=== PATIENT | female | born 1995 | race Caucasian/White ===

== ENCOUNTER 2018-02-28 15:24 | Emergency (ER) | payer OTHER ==
[2018-02-28] MEDS ORDERED: ACETAMINOPHEN 325 MG TABLET PO STA (16:16)
--- NOTE | 2018-02-28 16:20 | ED Physician Documentation ---
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 She is currently , and thinks she is at 6 weeks gestation. She reports nausea, and is vomited twice today. She denies fever, dysuria, or vaginal bleeding. Review of Systems Constitutional: denies: Fever Nose: denies: Congestion Throat: denies: Sore throat Cardiac: denies: Chest pain / pressure Respiratory: denies: Dyspnea, Cough GI: reports: Abdominal Pain, Nausea, Vomiting. denies: Diarrhea : denies: Dysuria, Vaginal bleeding Skin: denies: Rash Musculoskeletal: denies: Back pain Neurologic: denies: Headache PD PAST MEDICAL HISTORY - Past Medical History Past Medical History: Yes Respiratory: None Endocrine/Autoimmune: None MORTGAGE ACCOUNTING CLERK: Miscarriage(s) - Present Medications Home Medications: Ambulatory Orders Medication Instructions Recorded Confirmed Pnv No.122/Iron/Folic Acid 1 each PO 02/28/18 [ Multi Tablet] - Allergies Allergies/Adverse Reactions: Allergies Allergy/AdvReac Type Severity Reaction Status Date / Time eletriptan [From Relpax] Allergy Hives Verified 02/28/18 15:46 Penicillins Allergy Hives Verified 02/28/18 15:46 Sulfa (Sulfonamide Allergy Hives Verified 02/28/18 15:46 Antibiotics) - Social History Does the pt smoke?: No PD ED PE NORMAL - Vitals Vital signs reviewed: Yes (borderline hypertension) - General General: Alert and oriented X 3, Well developed/nourished, Other (overweight) - HEENT HEENT: Atraumatic, Moist mucous membranes, Pharynx benign - Neck Neck: No adenopathy, No JVD - Cardiac Cardiac: RRR, No murmur - Respiratory Respiratory: No respiratory distress, Clear bilaterally - Abdomen Abdomen: Soft, Other (Mild suprapubic tenderness to palpation, without rebound tenderness or guarding.) - Back Back: No CVA TTP - Derm Derm: No rash - Extremities Extremities: No edema, No calf tenderness / cord - Neuro Neuro: Alert and oriented X 3, No motor deficit, Normal speech Results - Vitals Vitals: Oxygen O2 Source Room air - Labs Labs: Laboratory Tests 02/28/18 02/28/18 15:52 16:21 HCG, Quant 2624.00 Urine Color YELLOW Urine Clarity CLEAR Urine pH 6.5 Ur Specific [place] 1.020 Urine Protein NEGATIVE Urine Glucose (UA) NEGATIVE Urine Ketones NEGATIVE Urine Occult Blood NEGATIVE Urine Nitrite NEGATIVE Urine Bilirubin NEGATIVE Urine Urobilinogen 0.2 (NORMAL) Ur Leukocyte Esterase NEGATIVE Ur Microscopic Review NOT INDICATED Urine Culture Comments NOT INDICATED - Rads (name of study) Pelvic U/S Radiology: Prelim report reviewed, EMP read contemporaneously, See rad report ( Intrauterine gestational sac which is too small and early to visualize pole and cardiac activity. Differential diagnosis includes normal viable early intrauterine and blighted ovum.) PD MEDICAL DECISION MAKING - ED course Complexity details: reviewed results, re-evaluated patient, considered differential, d/w patient, d/w family ED course: The patient's presentation, with mild pelvic pain, has likely due to incomplete miscarriage, with a quantitative hCG elevated at 2624, and a pelvic ultrasound that reveals an intrauterine gestational sac without cardiac activity. This may represent an early normal , but is also consistent with a blighted ovum. The patient is otherwise asymptomatic. She is being discharged with a prescription to have a repeat quantitative hCG level in 2 days, with the results to be sent to her pathology assistant at the [facility]. I discussed with her and her the results of the ultrasound , the importance of repeat quantitative hCG level, outpatient follow-up, as well as potentially worrisome signs or symptoms that should prompt reevaluation in the emergency department. Departure - Departure Disposition: 01 Home, Self Care Clinical Impression: Pelvic pain affecting in first trimester, antepartum Condition: Stable Instructions: ED Pelvic Pain [facility] Follow-Up: [facility] [Provider Group] Comments: You can use Tylenol if needed for discomfort. Use your antinausea medication as previously prescribed. Repeat the beta hCG blood test in 2 or 3 days. Follow up with your pathology assistant. Call tomorrow to schedule an appointment for Saturday if possible. Return to the emergency department if you develop increasing pelvic pain, increased vaginal bleeding, persistent vomiting, or otherwise worsening symptoms. Discharge Date/Time: 02/28/18 19:19
[2018-02-28 16:40] LABS: BILIRUBIN,URINE NEGATIVE (NEGATIVE); GLUCOSE, URINE (UA) NEGATIVE (NEGATIVE); KETONES,URINE (UA) NEGATIVE (NEGATIVE); LEUKOCYTE ESTERASE, URINE NEGATIVE (NEGATIVE); NITRITE,URINE NEGATIVE (NEGATIVE); OCCULT BLOOD,URINE NEGATIVE (NEGATIVE); PH,URINE 6.5 PH (5.0-7.5); PROTEIN,URINE NEGATIVE (NEGATIVE); UROBILINOGEN,URINE 0.2 (NORMAL) E.U./dL (NORMAL)
[2018-02-28 16:41] LABS: CLARITY,URINE CLEAR (CLEAR)
--- NOTE | 2018-02-28 17:47 | Ultrasound Report ---
EXAM: FIRST TRIMESTER OBSTETRIC ULTRASOUND (Less than 11 weeks) EXAM DATE: 02/28/2018 05:30 PM. CLINICAL HISTORY: Pelvic cramping in 1st trimester. LMP: 01/23/2018. COMPARISONS: None. TECHNIQUE: Transabdominal and transvaginal ultrasound examination with static image documentation. CLINICAL DATES: EGA 5 weeks 1 day with CHARLIE 10/30/2018 based on LMP. ASSESSMENT: Gestational Sac: Single intrauterine. Mean gestational sac diameter: 4.6 mm = 4 weeks 2 days. Embryo: Not visualized Yolk sac: 1.2 mm. Amniotic fluid: Not accurately assessed at this gestational age. Early placenta: Not visible at this gestational age. Other: No perigestational fluid collection demonstrated. MATERNAL STRUCTURES: Uterus: Anteverted. Unremarkable. Cervix: Closed. Right Ovary/Adnexa: Unremarkable. The ovary measures 2.5 x 2.3 x 2.2 cm. Left Ovary/Adnexa: Not seen. Other: None. IMPRESSION: 1. Intrauterine gestational sac which is too small and early to visualize pole and cardiac acti vity. Differential diagnosis includes normal viable early intrauterine and blighted ovum. [facility] Referring Provider Line: [phone] SITE ID: [id number]
--- NOTE | 2018-02-28 17:47 | Ultrasound Preliminary Report ---
Exam: US OB FIRST TRIMESTER IMPRESSION: 1. Intrauterine gestational sac which is too small and early to visualize pole and cardiac acti vity. Differential diagnosis includes normal viable early intrauterine and blighted ovum. [facility] SITE ID: [id number]
[2018-02-28] MEDS ORDERED: HYDROcod/ACETAM 5/325 MG TABLET PO STA (18:33)
[2018-02-28 18:45] VITALS: BP 117/76
== END 2018-02-28 19:19 | disposition home or self-care (01) ==
LOC: ED 15:24
DX: O26.891 Other specified pregnancy related conditions, first trimester (principal); R10.2 Pelvic and perineal pain; O21.0 Mild hyperemesis gravidarum; Z3A.01 Less than 8 weeks gestation of pregnancy
CPT/HCPCS: 76801; 76817; 81003; 84702; 99283; A9270; 81001; 87086

== ENCOUNTER 2018-05-13 12:19 | Emergency (ER) | payer OTHER ==
[2018-05-13 13:17] LABS: BILIRUBIN,URINE NEGATIVE (NEGATIVE); GLUCOSE, URINE (UA) NEGATIVE (NEGATIVE); KETONES,URINE (UA) NEGATIVE (NEGATIVE); LEUKOCYTE ESTERASE, URINE NEGATIVE (NEGATIVE); NITRITE,URINE NEGATIVE (NEGATIVE); OCCULT BLOOD,URINE NEGATIVE (NEGATIVE); PROTEIN,URINE NEGATIVE (NEGATIVE); UROBILINOGEN,URINE 0.2 (NORMAL) E.U./dL (NORMAL)
[2018-05-13 13:22] LABS: CLARITY,URINE CLEAR (CLEAR)
[2018-05-13 14:29] LABS: BASOPHILS % (AUTO) 0.3 %; EOSINOPHILS % (AUTO) 0.3 %; HGB - HEMOGLOBIN 12.5 g/dL (12.0-16.0); LYMPHOCYTES # (AUTO) 1.5 10^3/uL (1.5-3.5); MEAN CORPUSCULAR HEMOGLOBIN 31.4 pg (27.0-31.0); MEAN CORPUSCULAR HGB CONC 35.1 g/dL (32.0-36.0); MEAN CORPUSCULAR VOLUME 89.5 fL (81.0-99.0); MEAN PLATELET VOLUME 7.8 fL (7.9-10.8); MONOCYTES # (AUTO) 0.6 10^3/uL (0.0-1.0); MONOCYTES % (AUTO) 5.3 %; NEUTROPHILS # (AUTO) 9.3 10^3/uL (1.5-6.6); NEUTROPHILS % (AUTO) 81.1 %; PLT - PLATELET COUNT 318 10^3/uL (130-450); RED BLOOD COUNT 3.99 10^6/uL (4.20-5.40); RED CELL DISTRIBUTION WIDTH 12.9 % (12.0-15.0); WHITE BLOOD COUNT 11.4 x10^3/uL (4.8-10.8)
[2018-05-13 14:40] LABS: ALBUMIN 3.8 g/dL (3.2-5.5); BILIRUBIN,TOTAL 0.6 mg/dL (0.2-1.0); CALCIUM 9.5 mg/dL (8.5-10.3); CREATININE 0.6 mg/dL (0.4-1.0); TOTAL PROTEIN 7.8 g/dL (6.7-8.2)
[2018-05-13] MEDS ORDERED: LIDOCAINE PATCH 5% TOP PRN (15:27)
--- NOTE | 2018-05-13 15:50 | ED Physician Documentation ---
History of Present Illness - Stated complaint Stated Complaint: ABD PX/VOMITING/SHAKING - Chief complaint Chief Complaint: Abd Pain - Additonal information Additional information: hx from pt 22 est EGA 16 weeks followed by OB has had care and sono showing IUP to ED today with lower abd pain also L sided neck pian no fall or injury no fever no numbness or weakness no NVD no dysuria no vag bleed or fluid leaking called [facility] and was referred to [facility] Review of Systems Constitutional: denies: Fever Cardiac: denies: Chest pain / pressure Respiratory: denies: Dyspnea GI: reports: Abdominal Pain. denies: Nausea, Vomiting, Diarrhea Musculoskeletal: reports: Neck pain Neurologic: denies: Focal weakness, Numbness, Headache, Head injury Endocrine: denies: Easy bruising / bleeding Immunocompromised: denies: Immunocompromised PD PAST MEDICAL HISTORY - Past Medical History Respiratory: None Endocrine/Autoimmune: None GI: None FORESTRY CONTRACTOR: Miscarriage(s) - Present Medications Home Medications: Ambulatory Orders Medication Instructions Recorded Confirmed Pnv No.122/Iron/Folic Acid 1 each PO 02/28/18 [ Multi Tablet] - Allergies Allergies/Adverse Reactions: Allergies Allergy/AdvReac Type Severity Reaction Status Date / Time eletriptan [From Relpax] Allergy Hives Verified 02/28/18 15:46 Penicillins Allergy Hives Verified 02/28/18 15:46 Sulfa (Sulfonamide Allergy Hives Verified 02/28/18 15:46 Antibiotics) - Social History Does the pt smoke?: No Smoking Status: Never smoker PD ED PE NORMAL - Vitals Vital signs reviewed: Yes - Neck Neck: Supple, no meningeal sign, No bony TTP, Other (TTP posteriopr L neck post auricular region s redness swelling, c/w trigger pt, limited ROm 2/2 pain) - Cardiac Cardiac: RRR - Respiratory Respiratory: No respiratory distress, Clear bilaterally - Abdomen Abdomen: Soft, Other (gravid, suprapubic TTP, no focal RLQ pain) - Derm Derm: Normal color - Neuro Neuro: Alert and oriented X 3, No motor deficit, No sensory deficit Results - Vitals Vitals: Vital Signs - 24 hr 05/13/18 05/13/18 12:36 15:17 Temperature 36.0 C L 36.4 C L Heart Rate 89 76 Respiratory 16 18 Rate Blood Pressure 134/84 H 132/72 H O2 Saturation 99 98 Oxygen O2 Source Room air - Labs Labs: Laboratory Tests 05/13/18 05/13/18 05/13/18 12:52 14:24 14:24 WBC 11.4 H RBC 3.99 L Hgb 12.5 Hct 35.7 L MCV 89.5 MCH 31.4 H MCHC 35.1 RDW 12.9 Plt Count 318 MPV 7.8 L Neut # (Auto) 9.3 H Lymph # (Auto) 1.5 [place] # (Auto) 0.6 Eos # (Auto) 0.0 Baso # (Auto) 0.0 Absolute Nucleated RBC 0.00 Nucleated RBC % 0.0 Sodium 136 Potassium 3.5 Chloride 102 Carbon Dioxide 23 Anion Gap 11.0 BUN 7 Creatinine 0.6 Estimated GFR (MDRD) 125 Glucose 83 Calcium 9.5 Total Bilirubin 0.6 AST 15 ALT 11 Alkaline Phosphatase 74 Total Protein 7.8 Albumin 3.8 Globulin 4.0 Albumin/Globulin Ratio 1.0 Lipase 24 Urine Color YELLOW Urine Clarity CLEAR Urine pH 7.0 Ur Specific [place] 1.010 Urine Protein NEGATIVE Urine Glucose (UA) NEGATIVE Urine Ketones NEGATIVE Urine Occult Blood NEGATIVE Urine Nitrite NEGATIVE Urine Bilirubin NEGATIVE Urine Urobilinogen 0.2 (NORMAL) Ur Leukocyte Esterase NEGATIVE Ur Microscopic Review NOT INDICATED Urine Culture Comments NOT INDICATED - Rads (name of study) abd sono Radiology: See rad report (appendix not seen but no secondary signs of appy) OB sono Radiology: See rad report (live IUP no abruption) PD MEDICAL DECISION MAKING - ED course ED course: obtained records from [facility] pt is actually a G3 PO with two prior SAB OB notes from 04/30 inducate pt complained of freq GUPTA which was not a new problem for her but occuring more freq and a also complaining of suprapubic pain , and pmhx includes PTSD, prior SA, fibromylagia pt had already taken tylenol exlained to pt need to eb careful with medications 2/2 gfave a lido patch for her neck pain her GUPTA escalated and she was very upset with the nurse so I have reglan and jason as notes from [facility] state pt suffers from migraines and plan was to refer her to neuro if sx continued - when I spoke to pt about [facility] notes ahe says that yes she has been diagnosed with migraines and she has already seen neuro about this and she says efra says she just has to suffer because she is preg this caused a dystonic rxn so pt was given more benadyrl and will add reglan to all list so we do not give it again based on her hx and exam her GUPTA sounds like a recurrent chronic problem, she is afebrile with a supple neck not suggesting meningtitis, had no trauma, her eye are not injected so doubt glaucoma and no one else has GUPTA so doubt CO exposure her GUPTA did get better with the above meds re the abd pain I have a low suspicion of appy, pain seems more suprapubic, her urine is clean and her labs are fine - Sepsis Event Vital Signs: Vital Signs - 24 hr 05/13/18 05/13/18 12:36 15:17 Temperature 36.0 C L 36.4 C L Heart Rate 89 76 Respiratory 16 18 Rate Blood Pressure 134/84 H 132/72 H O2 Saturation 99 98 Oxygen O2 Source Room air Departure - Departure Disposition: 01 Home, Self Care Clinical Impression: Abdominal pain affecting Migraine Qualifiers: Migraine type: unspecified Status migrainosus presence: without status migrainosus Intractability: not intractable Qualified Code(s): G43.909 - Migraine, unspecified, not intractable, without status migrainosus Qualifiers: Weeks of gestation: 16 weeks Qualified Code(s): Z3A.16 - 16 weeks gestation of Condition: Good Instructions: ED Headache Migraine, ED Abdominal Pain Appendx Poss Comments: The reglan made your headache better but caused a dystonic reaction so you should list that as a medication allergy and not take it again Your urine did not show any infection and the ultrasound showed a healthy and no signs of appendicitis Reviewing your notes from [facility], it seems you have had this low mid abdominal pain since at least 04/30 so I think appendicitis is very unlikely - but if the pain localizes to the right lower abdomen please come back to be checked again Else follow up with your neurologist and OB
[2018-05-13] MEDS ORDERED: METOCLOPRAMIDE 10 MG/2 ML VIAL IVP STA (16:44)
[2018-05-13] MEDS ORDERED: diphenhydrAMINE INJ 50 MG/ML VIAL IVP STA ×2 (16:44→17:34)
[2018-05-13] MEDS ORDERED: SODIUM CHLORIDE 0.9% 1,000 ML IV ONE (16:45)
--- NOTE | 2018-05-13 17:26 | Ultrasound Report ---
Procedure Date: 05/13/2018 Accession Number: [id number] / [id number] Procedure: US - Abdomen Limited CPT Code: FULL RESULT: EXAM: ABDOMEN ULTRASOUND LIMITED, RUQ EXAM DATE: 05/13/2018 04:50 PM. CLINICAL HISTORY: at 16 weeks EGA with lower abdominal pain. COMPARISON: None. TECHNIQUE: Real-time scanning was performed of the right lower quadrant with static images obtained. FINDINGS: Appendix is not seen. No free or complex fluid collection is noted in the right lower quadrant. No pathologic adenopathy. IMPRESSION: 1. Appendix not seen. No secondary sonographic findings concerning for acute appendicitis. 2. If high clinical suspicion persists, patient may benefit from a dedicated CT of the abdomen and pelvis with contrast.
--- NOTE | 2018-05-13 17:32 | Ultrasound Report ---
Procedure Date: 05/13/2018 Accession Number: [id number] / [id number] Procedure: US - OB Limited CPT Code: FULL RESULT: EXAM: LIMITED OBSTETRICAL ULTRASOUND EXAM DATE: 05/13/2018 05:05 PM. CLINICAL HISTORY: G1, P0 at 16 weeks with pain. COMPARISON: None. TECHNIQUE: Real-time sonographic evaluation of the fetus performed by the holistic health practitioner. Multiple sales and marketing representative static images were saved for review. DATING: Established EGA 15 weeks 5 days with CHARLIE 10/30/2018. GENERAL EVALUATION Su . Cardiac activity: 148 bpm. movement: Visualized. Presentation: Cephalic. Placenta: Anterior position. No gross previa or abruption. Amniotic fluid: Normal. MURALI not calculated. MVP 3 cm. ANATOMY No gross abnormality on this limited study. MATERNAL STRUCTURES Closed cervix measuring 3.8 cm. IMPRESSION: 1. Su live intrauterine with gestational age 15 weeks 5 days based on established CHARLIE. 2. Closed cervix measures 3.8 cm. MARCUSA
[2018-05-13 18:28] VITALS: BP 104/63
== END 2018-05-13 18:45 | disposition home or self-care (01) ==
LOC: ED 12:19
DX: O26.892 Other specified pregnancy related conditions, second trimester (principal); R10.9 Unspecified abdominal pain; G43.909 Migraine, unspecified, not intractable, without status migrainosus; Z3A.16 16 weeks gestation of pregnancy
CPT/HCPCS: 36415; 76705; 76815; 80053; 81003; 83690; 85025; 96361; 96374; 96376; 99283; A9270; J1200; J2765; 81001; 87086

== ENCOUNTER 2019-08-21 18:24 | Outpatient (CLI) | payer OTHER ==
--- NOTE | 2019-08-22 15:06 | MRI Report ---
Reason: LUMBAR RADICULOPATHY Procedure Date: 08/21/2019 Accession Number: [id number] / [id number] Procedure: MRI - Lumbar Spine W/O CPT Code: Final Report FULL RESULT: EXAM: MRI LUMBAR SPINE WITHOUT CONTRAST EXAM DATE: 08/21/2019 07:10 PM. CLINICAL HISTORY: Lumbar radiculopathy. Pain since epidural 10 months ago. COMPARISON: None. TECHNIQUE: Multiplanar, multisequence T1-weighted and fluid-sensitive sequences of the lumbar spine from T12 to S1 without contrast. Other: None. FINDINGS: (Study is limited by motion artifact.) Spinal Canal: The conus terminates at T12-L1. The conus medullaris and cauda equina are unremarkable. The spinal canal is adequate. Alignment: No scoliosis or spondylolisthesis. Bone Marrow: Five [id number] lumbar vertebral bodies are assumed. No gross fractures or bone lesions. No bone marrow replacement. Disk Levels/Facets: T12-L1: Unremarkable. L1-L2: Unremarkable. Minimal peripheral diskogenic endplate irregularity. No bone marrow or paraspinous edema. Minimal lateral disk bulge. L2-L3: Unremarkable. L3-L4: Unremarkable. L4-L5: Unremarkable. L5-S1: Unremarkable. Musculature: Normal. No edema or fatty atrophy. Other: The partially visualized retroperitoneum is unremarkable. Note is made of an oval 30 mm cystic structure in the right lateral upper pelvis. This likely represents an ovarian cyst. This could be further evaluated with pelvic ultrasound. IMPRESSION: (Study is somewhat limited by motion artifact.) 1. Unremarkable MRI of the lumbar spine. No significant spondylosis. No stenosis. Comment: The following findings are so common in adults without low back pain that while we report their presence, they must be interpreted with caution and in the context of the clinical situation. (Reference Manjeetk et al, Spine 2001) Prevalence of findings in patients without low back pain: Disk degeneration (any evidence): 92% Disk desiccation/T2 signal loss: 83% Disk height loss: 56% Disk bulge: 64% Disk protrusion: 32% Annular tear/high intensity zone: 38% [facility]
== END 2019-08-21 18:25 | disposition home or self-care (01) ==
LOC: DI 18:24
PROVIDERS: ATTEND Family Medicine
DX: M54.16 Radiculopathy, lumbar region (principal)
CPT/HCPCS: 72148